=== PATIENT | male | born 1995 | race Caucasian/White ===

== ENCOUNTER 2018-01-21 00:50 | Emergency (ER) | payer MEDICAID ==
[~2018-01-21] VITALS: Ht 190.5 cm; Wt 146.0 kg
[2018-01-21] MEDS ORDERED: ESTROGEN (01:19)
[2018-01-21] MEDS ORDERED: SPIRONOLACTONE (01:19)
[2018-01-21] MEDS ORDERED: ZOLOFT (01:19)
[2018-01-21 01:57] VITALS: BP 142/68
[2018-01-21 02:01] LABS: ALANINE AMINOTRANSFERASE 48 U/L (12-78); ALBUMIN 3.6 g/dL (3.4-5.0); ANION GAP 7 mmol/L (5-15); CALCIUM 8.3 mg/dL (8.5-10.1); CHLORIDE 109 mmol/L (98-107); CREATININE 0.84 mg/dL (0.7-1.3)
[2018-01-21 02:07] LABS: BASOPHILS # (AUTO) 0.03 x10^3/uL (0-0.1); BASOPHILS % (AUTO) 0 % (0-1); EOSINOPHILS # (AUTO) 0.14 x10^3/uL (0-0.4); EOSINOPHILS % (AUTO) 2 % (1-7); LYMPHOCYTES # (AUTO) 1.94 x10^3/uL (1-3.4); LYMPHOCYTES % (AUTO) 24 % (22-44); MD NO; MEAN CORPUSCULAR HEMOGLOBIN 19.1 pg (27.5-34.5); MEAN CORPUSCULAR HGB CONC 32.3 g/dL (33.2-36.2); MEAN CORPUSCULAR VOLUME 59.2 fL (81-97); MEAN PLATELET VOLUME 8.5 fL (7.4-10.4); MONOCYTES # (AUTO) 0.65 x10^3/uL (0.2-0.8); MONOCYTES % (AUTO) 8 % (2-9); NEUTROPHILS # (AUTO) 5.33 x10^3/uL (1.8-6.8); NEUTROPHILS % (AUTO) 66 % (42-75); PLATELET COUNT 293 x10^3/uL (130-400); RED BLOOD COUNT 6.52 x10^6/uL (4.38-5.82); RED CELL DISTRIBUTION WIDTH 15.7 % (9.4-14.8)
[2018-01-21 02:12] LABS: ALKALINE PHOSPHATASE 69 U/L (45-117); BILIRUBIN,TOTAL 0.7 mg/dL (0.2-1.0); FREE T4 (FREE THYROXINE) 1.18 ng/dL (0.76-1.46); TOTAL PROTEIN 7.5 g/dL (6.4-8.2)
== END 2018-01-21 03:14 | disposition home or self-care (01) ==
LOC: ED 03:10
DX: M79.1 Myalgia (principal); F41.1 Generalized anxiety disorder
CPT/HCPCS: 36415; 80053; 83735; 84439; 84443; 85025; 93005; 99285

== ENCOUNTER 2018-02-26 20:53 | Emergency (ER) | payer MEDICAID ==
[~2018-02-26] VITALS: Ht 190.5 cm; Wt 138.9 kg
[~2018-02-26 20:53] MED LIST: ESTROGEN; SPIRONOLACTONE; ZOLOFT
[2018-02-26 22:20] VITALS: BP 124/61
== END 2018-02-26 22:41 | disposition home or self-care (01) ==
LOC: ED 21:52
DX: R20.0 Anesthesia of skin (principal); Z59.0 Homelessness
CPT/HCPCS: 36415; 80048; 82040; 85025; 99283